=== PATIENT | female | born 1965 | race American Indian/Alaskan Native ===

== ENCOUNTER 2017-03-03 19:25 | Emergency (ER) | payer MEDICARE ==
[2017-03-03 22:30] VITALS: BP 170/68
[2017-03-03 22:59] LABS: Hematocrit 37.3 % (30.3-42.9); Hemoglobin 12.2 gm/dl (10.1-14.3); Mean Corpuscular HGB Conc 33 % (30-34); Mean Corpuscular Hemoglobin 31 pg (28-32); Mean Corpuscular Volume 94 fl (79-97); Platelet Count 128 K/mm3 (140-440); Red Blood Count 3.97 M/mm3 (3.65-5.03); Red Cell Distribution Width 13.3 % (13.2-15.2)
[2017-03-03 23:16] LABS: BUN/Creatinine Ratio 26; Blood Urea Nitrogen 18 mg/dL (7-17); Calcium 8.3 mg/dL (8.4-10.2); Hemolysis Index 5
--- NOTE | 2017-03-03 23:29 | XRay Report ---
FINAL REPORT PROCEDURE: XR KNEE 3V RT TECHNIQUE: RIGHT knee radiographs, AP, lateral and oblique views. CPT 19375 HISTORY: knee injury with pain and swelling COMPARISON: No prior studies are available for comparison. FINDINGS: Fracture (s) and/or Dislocation(s): None . Alignment: Normal . Joint space(s): Moderate narrowing of the joint spaces. Mild spur formation off of the osseous structures.. Soft tissues: Normal . Bone mineralization: Normal . Foreign bodies: None . IMPRESSION: No acute fracture or dislocation. Moderate arthritis..
[2017-03-03] MEDS ORDERED: TYLENOL PO ONE (23:38)
[2017-03-03] MEDS ORDERED: TYLENOL ONE (23:40)
[2017-03-04 03:25] LABS: Bacteria,Urine 1+ /HPF (Negative); Bilirubin,Urine NEG (Negative); Blood,Urine NEG (Negative); Color,Urine Yellow (Yellow); Hyaline Casts,Urine 4 /LPF; Mucus,Urine 1+ /HPF; Nitrite,Urine NEG (Negative)
[2017-03-04 03:40] LABS: Amphetamine Screen,Urine PRESUMPTIVE NEGATIVE; Benzodiazepines Screen,Urine PRESUMPTIVE NEGATIVE; Methadone Screen,Urine PRESUMPTIVE NEGATIVE; Opiate Screen,Urine PRESUMPTIVE NEGATIVE
[2017-03-04 03:53] LABS: Cannabinoid Screen,Urine PRESUMPTIVE POSITIVE; Cocaine Screen,Urine PRESUMPTIVE POSITIVE
== END 2017-03-04 03:40 | disposition left against medical advice (07) ==
LOC: ED 19:25
DX: Z53.21 Procedure and treatment not carried out due to patient leaving prior to being seen by health care provider (principal)
CPT/HCPCS: 36415; 80048; 80307; 81001; 85027

== ENCOUNTER 2017-07-30 13:20 | Emergency (ER) | payer MEDICARE ==
[2017-07-30 13:49] VITALS: BP 114/61
--- NOTE | 2017-07-30 15:12 | XRay Report ---
RIGHT KNEE, 3 views: History: Trauma, pain Moderate to severe osteoarthritic changes are identified in the medial compartment and patellofemoral space. There is relative sparing of the lateral compartment. No evidence for fracture or bone lesion. A small joint effusion is identified on the lateral image. IMPRESSION: Advanced bicompartmental osteoarthritis. Small joint effusion. No acute process detected.
--- NOTE | 2017-07-30 15:51 | Emergency Department Report ---
ED Extremity Problem HPI - General Chief complaint: Extremity Injury, Lower Stated complaint: BACK PAIN Time Seen by Provider: 07/30/17 15:32 Source: patient Mode of arrival: Ambulatory Limitations: No Limitations - History of Present Illness Initial comments: Patient is a 51-year-old female who is in store and tripped and fell. The patient states this happened yesterday. Patient says 10 out of 10 pain in the right knee. Patient has been able to bear weight but does have a lap and is been using her cane more frequently. Patient states taking pain. Patient denies any other injury at this time. MD Complaint: extremity pain, extremity swelling - Related Data Home Medications Medication Instructions Recorded Confirmed Last Taken Baclofen 20 mg PO BID 01/06/13 01/06/13 Unknown Trazodone HCl [Trazodone] 100 mg PO BID 01/06/13 01/06/13 Unknown buPROPion [Wellbutrin] 100 mg PO DAILY 01/06/13 01/06/13 Unknown oxyCODONE [Roxicodone] 30 mg PO Q6H PRN 01/06/13 01/06/13 Unknown Previous Rx's Medication Instructions Recorded Last Taken Type Ibuprofen [Motrin] 800 mg PO TID PRN #60 tablet 01/21/13 Unknown Rx Oxycodone HCl/Acetaminophen 1 each PO Q4HR PRN #45 tablet 01/21/13 Unknown Rx [Percocet 7.5-325 mg] HYDROcodone/APAP 5-325 [[place] 1 each PO Q6HR PRN #15 tablet 07/30/17 Unknown Rx 5/325] Ibuprofen [Motrin] 600 mg PO Q8H PRN #20 tablet 07/30/17 Unknown Rx Allergies Allergy/AdvReac Type Severity Reaction Status Date / Time cyclobenzaprine HCl Allergy Hives Verified 01/20/13 11:41 [From Flexeril] ED Review of Systems ROS: Stated complaint: BACK PAIN Other details as noted in HPI Comment: All other systems reviewed and negative ED Past Medical Hx - Past Medical History Hx Congestive Heart Failure: No Hx Diabetes: No Hx Asthma: No Hx COPD: No - Surgical History Additional Surgical History: hysterectomy, - Social History Smoking Status: Never Smoker Substance Use Type: None - Medications Home Medications: Home Medications Medication Instructions Recorded Confirmed Last Taken Type Baclofen 20 mg PO BID 01/06/13 01/06/13 Unknown History Trazodone HCl [Trazodone] 100 mg PO BID 01/06/13 01/06/13 Unknown History buPROPion [Wellbutrin] 100 mg PO DAILY 01/06/13 01/06/13 Unknown History oxyCODONE [Roxicodone] 30 mg PO Q6H PRN 01/06/13 01/06/13 Unknown History Ibuprofen [Motrin] 800 mg PO TID PRN #60 tablet 01/21/13 Unknown Rx Oxycodone HCl/Acetaminophen 1 each PO Q4HR PRN #45 tablet 01/21/13 Unknown Rx [Percocet 7.5-325 mg] HYDROcodone/APAP 5-325 [[place] 1 each PO Q6HR PRN #15 tablet 07/30/17 Unknown Rx 5/325] Ibuprofen [Motrin] 600 mg PO Q8H PRN #20 tablet 07/30/17 Unknown Rx ED Physical Exam - General Limitations: No Limitations General appearance: alert, in no apparent distress - Head Head exam: Present: atraumatic, normocephalic - Eye Eye exam: Present: normal appearance - ENT ENT exam: Present: mucous membranes moist - Neck Neck exam: Present: normal inspection - Respiratory Respiratory exam: Present: normal lung sounds bilaterally. Absent: respiratory distress - Cardiovascular Cardiovascular Exam: Present: regular rate, normal rhythm. Absent: systolic murmur, diastolic murmur, rubs, gallop - GI/Abdominal GI/Abdominal exam: Present: soft, normal bowel sounds - Extremities Exam Extremities exam: Present: normal inspection, tenderness (patient has generalized tenderness of the right knee with some swelling.), joint swelling. Absent: full ROM (decreased range of motion to the right knee) - Back Exam Back exam: Present: normal inspection - Neurological Exam Neurological exam: Present: alert, oriented X3 - Psychiatric Psychiatric exam: Present: normal affect, normal mood - Skin Skin exam: Present: warm, dry, intact, normal color. Absent: rash ED Course Vital Signs 07/30/17 13:46 Temperature 98.6 F Pulse Rate 71 Respiratory 16 Rate Blood Pressure 114/61 O2 Sat by Pulse 100 Oximetry ED Medical Decision Making - Radiology Data Patient: ANGELA WONG MR#: [id number] : 1965 Acct:[id number] Age/Sex: 51 / F ADM Date: 07/30/17 Loc: ED Attending Dr: Ordering Physician: EMMA MORALES MD Date of Service: 07/30/17 Procedure(s): XR knee 3V RT Accession Number(s): [id number] cc: ED MD ANDREW Fluoro Time In Minutes: RIGHT KNEE, 3 views: History: Trauma, pain Moderate to severe osteoarthritic changes are identified in the medial compartment and patellofemoral space. There is relative sparing of the lateral compartment. No evidence for fracture or bone lesion. A small joint effusion is identified on the lateral image. IMPRESSION: Advanced bicompartmental osteoarthritis. Small joint effusion. No acute process detected. Transcribed By: TTR Dictated By: RAZA STEIN JR, MD Electronically Authenticated By: RAZA STEIN JR, MD Signed Date/Time: 07/30/17 1501 - Medical Decision Making Patient was given instructions on rice management and patient will be placed in a Xavier wrap and crutches. Critical care attestation.: If time is entered above; I have spent that time in minutes in the direct care of this critically ill patient, excluding procedure time. ED Disposition Clinical Impression: Knee effusion, right Knee sprain Qualifiers: Encounter type: initial encounter Involved ligament of knee: unspecified ligament Laterality: right Qualified Code(s): S83.91XA - Sprain of unspecified site of right knee, initial encounter Disposition: TO HOME OR SELFCARE Is pt being admited?: No Does the pt Need Aspirin: No Condition: Stable Instructions: Knee Effusion (ED), Osteoarthritis (ED) Referrals: YANI EVANS MD [Staff Physician] - 3-5 Days
[2017-07-30] MEDS ORDERED: MOTRIN PO ONE (15:58)
[2017-07-30] MEDS ORDERED: NORCO 7.5/325 PO ONE (15:58)
== END 2017-07-30 16:09 | disposition home or self-care (01) ==
LOC: ED 13:20
DX: S83.91XA Sprain of unspecified site of right knee, initial encounter (principal); Z88.8 Allergy status to other drugs, medicaments and biological substances; W01.0XXA Fall on same level from slipping, tripping and stumbling without subsequent striking against object, initial encounter; Y93.89 Activity, other specified; Y92.512 Supermarket, store or market as the place of occurrence of the external cause; Y99.8 Other external cause status
CPT/HCPCS: 99284

== ENCOUNTER 2019-03-20 14:23 | Emergency (ER) | payer MEDICARE | END 2019-03-20 17:08 | disposition left against medical advice (07) | LOC: ED 14:23 | DX: R07.89 Other chest pain (principal); Z53.21 Procedure and treatment not carried out due to patient leaving prior to being seen by health care provider | CPT/HCPCS: 93005; 93010 ==

== ENCOUNTER 2019-10-06 16:35 | Emergency (ER) | payer MEDICARE ==
[2019-10-06 18:45] VITALS: BP 148/101
--- NOTE | 2019-10-06 18:57 | Event Note ---
ED Screening Note Date of service: 10/06/19 Time: 18:54 ED Screening Note: This is a 54-year-old female w who presents the ED status post fall down 5 steps today. Complaining of left ankle pain radiating up forwards to her left left back Abrasion to left ankle. This initial assessment/diagnostic orders/clinical plan/treatment(s) is/are subject to change based on patients health status, clinical progression and re- assessment by fellow clinical providers in the ED. Further treatment and workup at subsequent clinical providers discretion. Patient/guardian urged not to elope from the ED as their condition may be serious if not clinically assessed and managed. Initial orders include: X-ray left ankle ordered
--- NOTE | 2019-10-06 20:00 | XRay Report ---
LEFT ANKLE 2 VIEW(S) INDICATION / CLINICAL INFORMATION: ankle pain COMPARISON: None available. FINDINGS: BONES / JOINT(S): Small ossicle at the distal fibula possibly representing variant anatomy or old avu lsion injury. Small inferior calcaneal enthesophyte. No acute fracture or subluxation. Ankle mortise is intact. No significant arthritis. SOFT TISSUES: Mild anterior and lateral edema. ADDITIONAL FINDINGS: None. Signer Name: Hawk Cadena MD Signed: 10/06/2019 7:55 PM Workstation Name: [email or web address]
[2019-10-06] MEDS ORDERED: ACETAMINOPHEN W/CODEINE 300-30 MG TAB PO ONE (21:00)
--- NOTE | 2019-10-06 21:39 | Emergency Department Report ---
ED Lower Extremity HPI - General Chief Complaint: Extremity Injury, Lower Stated Complaint: FALL Time Seen by Provider: 10/06/19 20:43 Source: patient Mode of arrival: Ambulatory Limitations: No Limitations - History of Present Illness Initial Comments: This is a 54-year-old female nontoxic, well nourished in appearance, no acute signs of distress presents to the ED with c/o of left ankle pain 1 day. Patient stated that she was walking and twisted her ankle. Patient denies any other trauma. Patient denies any numbness, tingling, fever, chills, nausea, vomiting, chest pain, shortness of breath, headache, stiff neck. Patient denies any joint swelling or joint redness. Patient denies decreased range of motion. Patient stated has decreased gait due to pain. Patient stated allergies to Flexeril. MD Complaint: ankle injury -: days(s) Injury: Ankle: Left Severity: mild Severity scale (0 -10): 8 Improves With: immobilization Worsens With: weight bearing, movement, palpation Associated Symptoms: swelling, able to partially bear weight. denies: snap/pop sensation, numbness, tingling, unable to bear weight - Related Data Home Medications Medication Instructions Recorded Confirmed Last Taken Baclofen 20 mg PO BID 01/06/13 01/06/13 Unknown Trazodone HCl [Trazodone] 100 mg PO BID 01/06/13 01/06/13 Unknown buPROPion [Wellbutrin] 100 mg PO DAILY 01/06/13 01/06/13 Unknown oxyCODONE [Roxicodone] 30 mg PO Q6H PRN 01/06/13 01/06/13 Unknown Previous Rx's Medication Instructions Recorded Last Taken Type Ibuprofen [Motrin] 800 mg PO TID PRN #60 tablet 01/21/13 Unknown Rx Oxycodone HCl/Acetaminophen 1 each PO Q4HR PRN #45 tablet 01/21/13 Unknown Rx [Percocet 7.5-325 mg] HYDROcodone/APAP 5-325 [[place] 1 each PO Q6HR PRN #15 tablet 07/30/17 Unknown Rx 5/325] Ibuprofen [Motrin] 600 mg PO Q8H PRN #20 tablet 07/30/17 Unknown Rx Naproxen 500 mg PO Q12H PRN #12 tablet 10/06/19 Unknown Rx Allergies Allergy/AdvReac Type Severity Reaction Status Date / Time cyclobenzaprine HCl Allergy Hives Verified 01/20/13 11:41 [From Flexeril] ED Review of Systems ROS: Stated complaint: FALL Other details as noted in HPI Constitutional: denies: chills, fever Eyes: denies: eye pain, eye discharge, vision change ENT: denies: ear pain, throat pain Respiratory: denies: cough, shortness of breath, wheezing Cardiovascular: denies: chest pain, palpitations Endocrine: no symptoms reported Gastrointestinal: denies: abdominal pain, nausea, diarrhea Genitourinary: denies: urgency, dysuria, discharge Musculoskeletal: denies: back pain, joint swelling, arthralgia Skin: denies: rash, lesions Neurological: denies: headache, weakness, paresthesias Psychiatric: denies: anxiety, depression Hematological/Lymphatic: denies: easy bleeding, easy bruising ED Past Medical Hx - Past Medical History Previous Medical History?: Yes Hx Congestive Heart Failure: No Hx Diabetes: No Hx Asthma: No Hx COPD: No Additional medical history: RT KNEE INJURY,OBESITY, RECURRENT BACK PAIN - Surgical History Past Surgical History?: Yes Additional Surgical History: hysterectomy, - Social History Smoking Status: Never Smoker Substance Use Type: None - Medications Home Medications: Home Medications Medication Instructions Recorded Confirmed Last Taken Type Baclofen 20 mg PO BID 01/06/13 01/06/13 Unknown History Trazodone HCl [Trazodone] 100 mg PO BID 01/06/13 01/06/13 Unknown History buPROPion [Wellbutrin] 100 mg PO DAILY 01/06/13 01/06/13 Unknown History oxyCODONE [Roxicodone] 30 mg PO Q6H PRN 01/06/13 01/06/13 Unknown History Ibuprofen [Motrin] 800 mg PO TID PRN #60 tablet 01/21/13 Unknown Rx Oxycodone HCl/Acetaminophen 1 each PO Q4HR PRN #45 tablet 01/21/13 Unknown Rx [Percocet 7.5-325 mg] HYDROcodone/APAP 5-325 [[place] 1 each PO Q6HR PRN #15 tablet 07/30/17 Unknown Rx 5/325] Ibuprofen [Motrin] 600 mg PO Q8H PRN #20 tablet 07/30/17 Unknown Rx Naproxen 500 mg PO Q12H PRN #12 tablet 10/06/19 Unknown Rx ED Physical Exam - General Limitations: No Limitations General appearance: alert, in no apparent distress - Head Head exam: Present: atraumatic, normocephalic - Neck Neck exam: Present: normal inspection, full ROM - Extremities Exam Extremities exam: Present: full ROM, tenderness, normal capillary refill. Absent: joint swelling - Expanded Lower Extremity Exam Left Hip exam: Present: normal inspection, full ROM. Absent: tenderness, swelling Upper Leg exam: Present: normal inspection, full ROM. Absent: tenderness, swelling Knee exam: Present: normal inspection, full ROM. Absent: tenderness, swelling Lower Leg exam: Present: normal inspection, full ROM. Absent: tenderness, swelling Ankle exam: Present: full ROM, tenderness, swelling, ecchymosis. Absent: abrasion, laceration, deformity, crepidus, dislocation, erythema, anterior draw sign Foot/Toe exam: Present: full ROM, tenderness. Absent: swelling, abrasion Neuro vascular tendon exam: Present: no vascular compromise Gait: Positive: observed and limited by pain - Back Exam Back exam: Present: normal inspection, full ROM. Absent: tenderness, CVA tenderness (R), CVA tenderness (L), muscle spasm, paraspinal tenderness, vertebral tenderness, rash noted - Neurological Exam Neurological exam: Present: alert, oriented X3 - Psychiatric Psychiatric exam: Present: normal affect, normal mood - Skin Skin exam: Present: warm, dry, intact, normal color. Absent: rash ED Course Vital Signs 10/06/19 10/06/19 17:01 18:43 Temperature 97.3 F L 97.3 F L Pulse Rate 91 H 94 H Respiratory 18 18 Rate Blood Pressure 138/101 148/101 O2 Sat by Pulse 100 100 Oximetry - Reevaluation(s) Reevaluation #1: 10/06/19 21:36 Patient is speaking in full sentences with no signs of distress noted. ED Lower Extremity MDM - Radiology Data Referring Physician: BRENDA MOSQUERA Patient Name: ANGELA WONG Date of : 1965 Sex: Female Report Date: 2019-10-06 Report Status: Finalized [address] [address] XRay Report Signed Patient: ANGELA WONG MR#: [id number] : 1965 Acct:[id number] Age/Sex: 54 / F ADM Date: 10/06/19 Loc: ED Attending Dr: Ordering Physician: KILO HUERTAS Date of Service: 10/06/19 Procedure(s): XR ankle 2V LT Accession Number(s): [id number] cc: KILO HUERTAS Fluoro Time In Minutes: LEFT ANKLE 2 VIEW(S) INDICATION / CLINICAL INFORMATION: ankle pain COMPARISON: None available. FINDINGS: BONES / JOINT(S): Small ossicle at the distal fibula possibly representing variant anatomy or old avulsion injury. Small inferior calcaneal enthesophyte. No acute fracture or subluxation. Ankle mortise is intact. No significant arthritis. SOFT TISSUES: Mild anterior and lateral edema. ADDITIONAL FINDINGS: None. Signer Name: Yani Cadena MD Signed: 10/06/2019 7:55 PM Workstation Name: [id number] Transcribe d By: Dictated By: YANI CADENA III Electronically Authenticated By: YANI CADENA III Signed Date/Time: 10/06/191954 DD/ 52 TD/TT: - Medical Decision Making This is a 54-year-old female that presents with left ankle sprain. Patient is stable and was examined by me. I referred patient to an orthopedic doctor for further evaluation for possible MRI. X-ray has been obtained and dictated by the radiologist. Patient is notified of the x-ray report with noted by the patient. Patient does have normal gait with no tenderness and no joint swelling. No ecchymosis. no joint redness or swelling. Not warm to touch. No signs of cellulites present. Patient received an ankle stirrup and crutches and was educated by RN how to use crutches. Patient was instructed to RICE therapy. Patient received Tylnol #3 for pain and stated family member will drive the patient home after dishcarge due to possible drowiness. Patient is discharged with Naproxen. At time of discharge, the patient does not seem toxic or ill in appearance. No acute signs of distress noted. Patient agrees to discharge treatment plan of care. No further questions noted by the patient. Critical care attestation.: If time is entered above; I have spent that time in minutes in the direct care of this critically ill patient, excluding procedure time. ED Disposition Clinical Impression: Left ankle sprain Qualifiers: Encounter type: initial encounter Involved ligament of ankle: unspecified ligament Qualified Code(s): S93.402A - Sprain of unspecified ligament of left ankle, initial encounter Disposition: TO HOME OR SELFCARE Is pt being admited?: No Does the pt Need Aspirin: No Condition: Stable Instructions: RICE Therapy (ED), Ankle Sprain (ED), Ankle Stirrup Splint (ED), Crutch Instructions (ED) Additional Instructions: Follow-up with a orthopedic doctor in 3-5 days or if symptoms worsen and continue return to emergency room as soon as possible. Prescriptions: Naproxen 500 mg PO Q12H PRN #12 tablet PRN Reason: Pain , Severe (7-10) Referrals: PRIMARY CARE, [Primary Care Provider] - 3-5 Days YANI EVANS MD [Staff Physician] - 3-5 Days
== END 2019-10-06 21:42 | disposition home or self-care (01) ==
LOC: ED 16:35
DX: S93.402A Sprain of unspecified ligament of left ankle, initial encounter (principal); Z90.710 Acquired absence of both cervix and uterus; Z98.890 Other specified postprocedural states; Z79.1 Long term (current) use of non-steroidal anti-inflammatories (NSAID); Z79.899 Other long term (current) drug therapy; Z88.8 Allergy status to other drugs, medicaments and biological substances; X50.1XXA Overexertion from prolonged static or awkward postures, initial encounter; Y93.89 Activity, other specified; Y92.89 Other specified places as the place of occurrence of the external cause; Y99.8 Other external cause status

== ENCOUNTER 2020-06-20 10:44 | Outpatient (CLI) | payer MEDICARE ==
--- NOTE | 2020-06-22 09:31 | XRay Report ---
BOTH KNEES 4 VIEWS INDICATION / CLINICAL INFORMATION: M17.11 M25.561 STANDING VIEWS. COMPARISON: None available. FINDINGS: Standing views show marked articular cartilage loss in the right knee, especially medially. Also, the re appears to be slight medial subluxation of the distal femur with respect to the proximal tibia. Ar ticular spaces of the left knee are reasonably well preserved. Moderate degenerative change of the patellofemoral joint is demonstrated bilaterally, but there is no appreciable joint effusion in either knee. Signer Name: John Ho MD Signed: 06/22/2020 9:26 AM Workstation Name: [id number]
== END 2020-06-20 10:45 | disposition home or self-care (01) ==
LOC: XRAY 10:44
PROVIDERS: ATTEND Orthopaedic Surgery
DX: M17.0 Bilateral primary osteoarthritis of knee (principal)

== ENCOUNTER 2020-07-05 13:36 | Emergency (ER) | payer MEDICARE ==
[2020-07-05 14:17] VITALS: BP 184/98
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
== END 2020-07-05 18:54 | disposition home or self-care (01) ==
LOC: ED 13:36
DX: M25.561 Pain in right knee (principal); G89.29 Other chronic pain; Z90.710 Acquired absence of both cervix and uterus; Z79.899 Other long term (current) drug therapy; Z88.8 Allergy status to other drugs, medicaments and biological substances; Z98.890 Other specified postprocedural states
CPT/HCPCS: 99281

== ENCOUNTER 2020-08-03 11:31 | Inpatient (IN) | payer MEDICARE ==
[2020-07-31 10:13] LABS: Hematocrit 38.9 % (30.3-42.9); Hemoglobin 13.5 gm/dl (10.1-14.3); Mean Corpuscular HGB Conc 35 % (30-34); Mean Corpuscular Volume 94 fl (79-97); Platelet Count 214 K/mm3 (140-440); Red Blood Count 4.15 M/mm3 (3.65-5.03); Red Cell Distribution Width 13.8 % (13.2-15.2)
[2020-07-31 10:34] LABS: BUN/Creatinine Ratio 23; Blood Urea Nitrogen 21 mg/dL (7-17); Calcium 10.2 mg/dL (8.4-10.2); Hemolysis Index 0
[~2020-08-03 11:31] MED LIST: ceFAZolin/Water 2 GM/20 ML 2 GM/20 ML SYRINGE IV NR
[2020-08-03] MEDS ORDERED: LACTATED RINGERS 1,000 ML ONE ×2 (12:51→16:30)
[2020-08-03] MEDS ORDERED: MIDAZOLAM 2 MG/2 ML INJ ONE ×2 (13:27→13:41)
[2020-08-03] MEDS ORDERED: BUPIVACAINE/PF (0.25%) 2.5 MG/ML 30 ML VIAL INFILTRATI ONE (13:27)
[2020-08-03] MEDS ORDERED: dexAMETHasone 4 MG/ML VIAL ONE (13:27)
[2020-08-03] MEDS ORDERED: fentaNYL 100 MCG/2 ML INJ ONE ×2 (13:28→17:43)
[2020-08-03] MEDS ORDERED: ACETAMINOPHEN 500 MG TAB ONE (13:29)
[2020-08-03] MEDS ORDERED: CELECOXIB 200 MG CAP ONE (13:29)
[2020-08-03] MEDS ORDERED: MAGNESIUM OXIDE 400 MG TAB PO ONE (13:30)
[2020-08-03] MEDS ORDERED: LACTATED RINGERS 1,000 ML IV SCH (13:30)
--- NOTE | 2020-08-03 13:33 | Anesthesia Day of Surgery ---
Anesthesia Day of Surgery - Day of Surgery Patient Examined: Yes Patient H&P Reviewed: Yes Patient is NPO: Yes
--- NOTE | 2020-08-03 13:35 | Anesthesia Consultation ---
Anesthesia Consult and Med Hx Date of service: 08/03/20 - Airway Anesthetic Teeth Evaluation: Good, Dentures (Upper) ROM Head & Neck: Adequate Mental/Hyoid Distance: Adequate Mallampati Class: Class II Intubation Access Assessment: Good - Pre-Operative Health Status ASA Pre-Surgery Classification: ASA2 Proposed Anesthetic Plan: General (Pt requests GA) Nerve Block: AC - Pulmonary Hx Smoking: Yes (STOPPED 2011) Hx Asthma: No COPD: No Hx Pneumonia: No Hx Sleep Apnea: No (VIOLETA PRE SCREEN HIGH RISK) - Cardiovascular System Hx Hypertension: No - Central Nervous System Hx Back Pain: Yes (GOING TO PAIN CLINIC) Hx Psychiatric Problems: Yes (Anxiety/Depression) - Gastrointestinal Hx Gastroesophageal Reflux Disease: No - Endocrine Hx End Stage Renal Disease: No - Hematic Hx Anemia: No - Other Systems Hx Substance Use: Yes (MARIJUANA , PAIN PILLS) Hx Cancer: No
[2020-08-03] MEDS ORDERED: KETAMINE/STERILE WATER 50 MG/ML SYRINGE ONE (13:45)
[2020-08-03] MEDS ORDERED: BUPIVACAINE/PF (0.5%) 5 MG/1 ML 10 ML VIAL INFILTRATI ONE ×2 (13:56→17:13)
[2020-08-03] MEDS ORDERED: TRANEXAMIC ACID 1,000 MG/10 ML ONE (13:57)
[2020-08-03] MEDS ORDERED: SODIUM CHLORIDE 0.9% 50 ML ONE (13:57)
[2020-08-03] MEDS ORDERED: KETOROLAC 30 MG/1 ML INJ ONE (13:57)
[2020-08-03] MEDS ORDERED: MORPHINE 10 MG/1 ML INJ ONE (13:57)
[2020-08-03] MEDS ORDERED: SODIUM CHLORIDE 0.9% 200 ML ONE (13:58)
[2020-08-03] MEDS ORDERED: NEOMY 40 MG/POLYMYXIN B 200,000 UNITS/ML (GU) AMPULE IR ONE ×2 (13:58→17:00)
[2020-08-03] MEDS ORDERED: propofoL 200 MG/20 ML VIAL IV ONE (14:50)
[2020-08-03] MEDS ORDERED: HYDROmorphone 1 MG/1 ML INJ ONE (14:50)
[2020-08-03] MEDS ORDERED: LIDOCAINE MPF (2%) 20 MG/1 ML VIAL 5 ML ONE (14:56)
[2020-08-03] MEDS ORDERED: SODIUM CHLORIDE 0.9% 100 ML IVPB IV ONE (17:13)
[2020-08-03] MEDS ORDERED: MORPHINE 10 MG/1 ML INJ IM ONE (17:13)
[2020-08-03] MEDS ORDERED: KETOROLAC 30 MG/1 ML INJ IV ONE (17:13)
[2020-08-03] MEDS ORDERED: ONDANSETRON 4 MG/2 ML INJ ONE (17:13)
[2020-08-03] MEDS ORDERED: PROMETHAZINE 25 MG RECT SUPP PR PRN (17:22)
--- NOTE | 2020-08-03 17:30 | Procedure Note ---
Date of procedure: 08/03/20 Pre-op diagnosis: Severe arthritis right knee Procedure: [Right] total knee replacement Procedure The patient was brought to the OR after being given a obturator nerve block and preoperative holding she was placed on the OR table supine position following induction elevation of anesthesia the patient is [right] lower extremity was prepped and draped in the usual sterile manner. A timeout procedure was done to identify the patient in the correct operative site. The leg was exsanguinated followed by inflation of the pneumatic tourniquet to 300 mmHg. A midline incision was made over the patella was taken down distally towards the tibial tubercle next the medial retinaculum was incised and the patella was inverted examination of the patient's knee joint revealed typical osteoarthritic changes with large bone spurs noted primarily in the medial compartment both the femoral and tibial's articular surfaces exhibited bare bone and large peripheral osteophytes next a large drill bit was used to enter the medullary canal this was followed by placement of the distal femoral cutting Jig the distal femur was resected approximately 8-9 mm of bone was removed at this time. Attention was turned to the patient's proximal tibia using a external alignme guide the bone was cut using the medial surface as the low point of care was taken to protect the medial collateral ligaments the tibial articular surface. A #3 tibial based ray was selected this was followed by placement of the fixation hole or keel into the proximal tibial medullary canal. Attention was turned to the distal femur and using a 4 and 1 cutting block a +4 component was selected AP anterior and posterior as well as Aguilera cuts were made a +4 femoral component was placed and the knee was then taken to a range of motion she appeared to have stability in both the flexion and extension FOLLOWING this the trial components were removed the knee was then copiously irrigated any remaining soft tissue and bony debris were removed at this time next the cement was next and following this the tibial components were inserted beginning with the based ray followed by the polyethylene insert, The femoral component was added the excess cement were removed the knee was held in extension until the cement hardened following hardening of cement the knee was then brought back into of flexion any remaining soft tissue and bony debris were removed at this time. The wound again was irrigated and was closed in a standard routine fashion. Dressings were applied the patient tolerated the procedure there were no complications she was then taken to post anesthesia recovery Anesthesia: MAC, regional Surgeon: YANI EVANS (Michael Do M.D. 1st assist) Estimated blood loss: other (300 cc) Pathology: list (Portions of bone and cartilage right knee sent to pathology) Specimen disposition: to lab Condition: stable Disposition: PACU
[2020-08-03] MEDS: HYDROmorphone 1 MG/1 ML INJ IV PRN ×3 (17:53→21:13)
[2020-08-03] MEDS ORDERED: BUPIVACAINE/PF (0.5%) 5 MG/1 ML 30 ML VIAL INFILTRATI ONE (17:54)
[2020-08-03] MEDS ORDERED: ONDANSETRON 4 MG/2 ML INJ IV PRN (18:15)
[2020-08-03] MEDS ORDERED: MIDAZOLAM 2 MG/2 ML INJ IV ONE (18:20)
--- NOTE | 2020-08-03 18:46 | XRay Report ---
RIGHT KNEE 2 VIEW(S) INDICATION / CLINICAL INFORMATION: post op evaluation COMPARISON: 06/20/2020 FINDINGS: Knee arthroplasty has been placed with satisfactory postoperative radiographic appearance. Signer Name: Silvestre Bee MD Signed: 08/03/2020 6:42 PM Workstation Name: [id number]
[2020-08-04] MEDS: HYDROmorphone 1 MG/1 ML INJ IV PRN ×3 (01:01→10:50)
[2020-08-04] MEDS: ENOXAPARIN 40 MG/0.4 ML INJ SUB-Q SCH (09:00)
[2020-08-04] MEDS: KETOROLAC 30 MG/1 ML INJ IV PRN ×2 (09:45→14:30)
--- NOTE | 2020-08-04 13:01 | Post Anesthesia Evaluation ---
- Post Anesthesia Evaluation Patient Participated: Yes Airway Patent: Yes Stable Respiratory Function: Yes Nausea/Vomiting: No Temp > 96.8F: Yes Pain Manageable: Yes Adequeate Hydration: Yes Anesthesia Complications: No Block Receding Appropriately: Not Applicable Patient on Ventilator: No
--- NOTE | 2020-08-04 13:10 | Progress Note ---
Assessment and Plan Status post right total knee replacement postop day 1 We will start physical therapy for rehab patient states she lives alone and would like inpatient PT or rehab if possible Subjective Date of service: 08/04/20 Interval history: Complaining of incisional pain otherwise okay Objective Vital signs: Vital Signs - 12hr 08/04/20 08/04/20 08/04/20 04:40 07:56 08:31 Temperature 97.9 F 97.6 F Pulse Rate 95 H 83 Respiratory 20 16 Rate Blood Pressure 120/68 136/61 O2 Sat by Pulse 100 100 100 Oximetry Incision: draining, clean and dry Weight bearing status: as tolerated - Labs CBC & BMP: 07/31/20 09:30 07/31/20 09:30
[2020-08-04] MEDS ORDERED: oxyCODONE 5 MG TAB PO PRN (15:00)
[2020-08-04] MEDS: PROMETHAZINE 25 MG TAB PO PRN (15:07)
[2020-08-04] MEDS: oxyCODONE 5 MG TAB PO PRN ×2 (19:05→22:55)
[2020-08-05] MEDS: KETOROLAC 30 MG/1 ML INJ IV PRN (00:31)
[2020-08-05] MEDS: oxyCODONE 5 MG TAB PO PRN ×5 (04:05→20:24)
[2020-08-05] MEDS: ENOXAPARIN 40 MG/0.4 ML INJ SUB-Q SCH (08:18)
[2020-08-05] MEDS: HYDROmorphone 1 MG/1 ML INJ IV PRN ×3 (12:50→22:30)
[2020-08-05] MEDS: PROMETHAZINE 25 MG TAB PO PRN (18:13)
[2020-08-06] MEDS: HYDROmorphone 1 MG/1 ML INJ IV PRN ×4 (04:02→19:30)
[2020-08-06] MEDS: PROMETHAZINE 25 MG TAB PO PRN ×2 (04:09→23:26)
[2020-08-06] MEDS: ENOXAPARIN 40 MG/0.4 ML INJ SUB-Q SCH (08:40)
[2020-08-06] MEDS: oxyCODONE 5 MG TAB PO PRN ×2 (16:32→23:27)
[2020-08-07] MEDS: HYDROmorphone 1 MG/1 ML INJ IV PRN ×3 (05:54→22:37)
[2020-08-07] MEDS: ENOXAPARIN 40 MG/0.4 ML INJ SUB-Q SCH (10:59)
[2020-08-07] MEDS: oxyCODONE 5 MG TAB PO PRN ×2 (11:00→18:17)
--- NOTE | 2020-08-07 12:43 | Discharge Summary ---
Providers - Providers Date of Admission: 08/03/20 14:24 Date of discharge: 08/07/20 Attending physician: YANI EVANS MD 08/03/20 17:24 Physical Therapy Evaluation and Treat [CONS] Routine Comment: Reason For Exam: postop evaluation Weight bearing status?: Full wt bearing Assistive devices?: Yes If so list: Chuck Primary care physician: ELVIRA ODONNELL Hospitalization Condition: Stable Procedures: Right total knee replacement Hospital course: 55-year-old female with a long history of bilateral knee pain and stiffness both knees with the right worse at this time she denies a history of trauma. Plain x-rays taken preoperatively show severe osteoarthritis. Patient was admitted to the hospital and was taken to the OR where a right total knee replacement was performed without complications postoperatively patient physical therapy progress was slowed secondary to pain control in addition patient states she lives alone and has no one to care for her therefore case management services were consulted for detention placement patient was seen and followed by physical therapy where she was given instructions on gait and range of motion exercises. Disposition: DC/-03 SNF W [facility] CERT Final Discharge Diagnosis (Prints w/discharge instructions): Severe arthritis right knee Core Measure Documentation - Palliative Care Palliative Care/ Comfort Measures: Not Applicable - Core Measures Any of the following diagnoses?: none - VTE Discharge Requirements Deep Vein Thrombosis/Pulmonary Embolism Present on Admission: No Has pt received <5 days of overlap therapy or INR<2.0: Yes Anticoagulant overlap therapy prescribed at discharge: Yes Contraindication No Overlap Therapy order at DC: Medical Contraindication - Acute [place] Discharge Requirements Aspirin at discharge: No Reason for no aspirin on DC: Medical contraindication - Heart Failure Discharge Requirements KRISTEL/ARB for LVSD if EF <40%: Not Applicable - Stroke Discharge Requirements Statin for LDL = or >70 mg/dl on DC: Not Applicable Exam - Constitutional Vitals: Temp Pulse Resp BP Pulse Ox 98.5 F 76 18 124/55 100 08/07/20 07:00 08/07/20 07:00 08/07/20 07:00 08/07/20 07:00 08/07/20 07:00 General appearance: Present: no acute distress, well-nourished Plan Activity: advance as tolerated Weight Bearing Status: Weight Bear as Tolerated Diet: low fat Wound: keep clean and dry Special Instructions: physical therapy Durable Medical Equipment Needed Upon Discharge: Walker-Standard, Bedside Commode Follow up with: ELVIRA ODONNELL NP-C [Primary Care Provider] - 7 Days Prescriptions: Apixaban [Eliquis] 5 mg PO DAILY 30 Days tablet Oxycodone HCl/Acetaminophen [Percocet 10/325 mg] 1 each PO Q6HR PRN #30 tablet PRN Reason: Pain
[2020-08-07] MEDS: GABAPENTIN 300 MG CAP PO SCH (20:03)
[2020-08-08] MEDS: HYDROmorphone 1 MG/1 ML INJ IV PRN ×4 (01:28→20:18)
[2020-08-08] MEDS: PROMETHAZINE 25 MG TAB PO PRN ×2 (06:18→20:18)
[2020-08-08] MEDS: GABAPENTIN 300 MG CAP PO SCH ×2 (09:26→22:10)
[2020-08-08] MEDS: oxyCODONE 5 MG TAB PO PRN (09:26)
[2020-08-08] MEDS: ENOXAPARIN 40 MG/0.4 ML INJ SUB-Q SCH (09:27)
[2020-08-08] MEDS ORDERED: LIP THERAPY VASELINE TP PRN (20:58)
[2020-08-09] MEDS: oxyCODONE 5 MG TAB PO PRN ×4 (03:52→16:40)
[2020-08-09] MEDS: ENOXAPARIN 40 MG/0.4 ML INJ SUB-Q SCH (07:55)
[2020-08-09] MEDS: GABAPENTIN 300 MG CAP PO SCH ×2 (07:55→22:26)
[2020-08-09] MEDS: HYDROmorphone 1 MG/1 ML INJ IV PRN (22:25)
[2020-08-10] MEDS: PROMETHAZINE 25 MG TAB PO PRN (01:47)
[2020-08-10] MEDS: oxyCODONE 5 MG TAB PO PRN ×3 (01:47→14:40)
[2020-08-10] MEDS: HYDROmorphone 1 MG/1 ML INJ IV PRN (06:25)
[2020-08-10] MEDS: ENOXAPARIN 40 MG/0.4 ML INJ SUB-Q SCH (10:23)
[2020-08-10] MEDS: GABAPENTIN 300 MG CAP PO SCH (10:24)
[2020-08-10 16:33] VITALS: BP 126/63
== END 2020-08-10 17:20 | DRG 470 ==
LOC: OR 11:31 → EDSTATUS 14:15 → 3B 14:24
PROVIDERS: ADMIT Orthopaedic Surgery; ATTEND Orthopaedic Surgery
PROC: 0SRC0J9 Replacement of Right Knee Joint with Synthetic Substitute, Cemented, Open Approach (ICD-10-PCS; principal; 2020-08-03)
DX: M17.11 Unilateral primary osteoarthritis, right knee (principal); Z20.822 Contact with and (suspected) exposure to COVID-19
CPT/HCPCS: 36415; 64450; 80048; 85027; 88304; 88311; G0378; C1776; J0690; J1100; J1170; J1650; J1885; J2250; J2270; J2405; J2704; J3010; J3490; J7120; Q0169; U0003